=== PATIENT | female | born 1980 | race Caucasian/White ===

== ENCOUNTER → 2019-05-24 | Outpatient (CLI) | payer OTHER ==
--- NOTE | 2019-05-24 17:29 | RAD ---
US PELVIS W/TV History: Pelvic pain, Essure devices for 2 years Comparison: None. Findings: Multiple transabdominal sonographic images of the pelvis are submitted. Uterus measured 10.6 x 4.6 x 5.8 cm. Endometrium measured 0.37 m in thickness. Right ovary measured 2.7 x 2.5 x 3.3 cm. Left ovary measured 3.1 x 2.2 x 1.4 cm. Transvaginal ultrasound: Multiple transvaginal sonographic images of pelvis are similar. Right ovary measured 3.3 x 2.3 x 1.9 cm with normal color flow and low resistance vascularity. Endometrium measured about 0.6 cm in greatest thickness. No free fluid is demonstrated. There is normal low resistance vascularity of the left ovary. Transabdominal images of left ovary demonstrate measurements of 3 x 1.6 x 2.9 cm. Impression: 1. No significant abnormality is demonstrated. Electronically signed by: Juan M Arce MD (05/24/2019 5:26 PM) [id number]
== END | disposition home or self-care (01) ==
LOC: US 13:41
PROVIDERS: ATTEND Obstetrics & Gynecology
DX: Z01.419 Encounter for gynecological examination (general) (routine) without abnormal findings (principal); R10.2 Pelvic and perineal pain; E34.9 Endocrine disorder, unspecified
CPT/HCPCS: 76830; 76856